=== PATIENT | female | born 1955 | race Caucasian/White ===

== ENCOUNTER 2019-08-21 14:46 | Emergency (ER) | payer SELFPAY ==
[~2019-08-21] VITALS: Ht 162.6 cm; Wt 88.0 kg
[2019-08-21] MEDS ORDERED: DIPHENHYDRAMINE 50MG/ML VIAL IV ONE (15:45)
[2019-08-21] MEDS ORDERED: METHYLPREDNISOLONE SOD SUCC 125 MG/2 ML VIAL IV ONE (15:45)
[2019-08-21] MEDS ORDERED: FAMOTIDINE 20MG/2ML VIAL IV ONE (15:45)
[2019-08-21 15:49] LABS: BASOPHILS % 0.2 % (0.0-2.0); EOSINOPHILS % 1.3 % (0.0-5.0); HEMATOCRIT. 42.2 % (36.0-48.0); HEMOGLOBIN. 13.8 g/dL (12.0-16.0); LYMPHOCYTES % 29.3 % (20.0-50.0); MEAN CORPUSCULAR HEMOGLOBIN 26.2 pg (28.0-32.0); MEAN CORPUSCULAR VOLUME 80.3 fL (81.0-99.0); MEAN PLATELET VOLUME 8.8 fl (7.4-10.4); MONOCYTES % 7.7 % (2.0-8.0); NEUTROPHILS % 61.5 % (40.0-76.0); PLATELET 397 x1000/uL (130-400); RED BLOOD CELL COUNT 5.25 mill/uL (4.2-5.4); RED CELL DISTRIBUTION WIDTH 13.2 % (11.6-14.6)
[2019-08-21 15:55] LABS: CHLORIDE 104 mEq/L (98-107)
[2019-08-21 18:00] VITALS: BP 128/82
== END 2019-08-21 19:31 | disposition home or self-care (01) ==
LOC: ER 15:03
DX: T78.49XA Other allergy, initial encounter (principal); X58.XXXA Exposure to other specified factors, initial encounter; F41.9 Anxiety disorder, unspecified; E78.00 Pure hypercholesterolemia, unspecified; I10 Essential (primary) hypertension; E11.65 Type 2 diabetes mellitus with hyperglycemia; D72.829 Elevated white blood cell count, unspecified; L29.9 Pruritus, unspecified; E86.0 Dehydration; R00.0 Tachycardia, unspecified
CPT/HCPCS: 36415; 71045; 80053; 85025; 93005; 96374; 96375; 99285; J1200; J2930; J3490